=== PATIENT | female | born 1965 | race Caucasian/White ===

== ENCOUNTER 2024-12-24 13:10 | Emergency (ER) | payer BC, OTHER | END 2024-12-24 15:38 | disposition home or self-care (01) | LOC: BURERS 13:10 → EEVIPCON 13:10 → BURERS 15:38 | DX: S09.90XA Unspecified injury of head, initial encounter (principal); S30.0XXA Contusion of lower back and pelvis, initial encounter; I10 Essential (primary) hypertension; F17.210 Nicotine dependence, cigarettes, uncomplicated; E11.9 Type 2 diabetes mellitus without complications; Y04.0XXA Assault by unarmed brawl or fight, initial encounter; Z79.84 Long term (current) use of oral hypoglycemic drugs; Z79.899 Other long term (current) drug therapy | CPT/HCPCS: 70450; 74176; 96374; G0390; J2270 ==